=== PATIENT | male | born 1955 | race Caucasian/White ===

== ENCOUNTER 2016-10-08 19:36 | Observation (INO) ==
[2016-10-08 20:09] LABS: Basophils % 0.3 %; Eosinophils # 0.1 K/mcL (0.0-0.6); Eosinophils % 2.1 %; Hematocrit 39.5 % (37.5-50.1); Hemoglobin 12.7 g/dL (12.9-16.9); Immature Granulocytes % 0.3 % (0-4); Immature Platelets 7.8 % (1.1-6.1); Lymphocytes % 29.8 %; Mean Corpuscular HGB Conc 32.2 g/dL (31.6-35.5); Mean Corpuscular Hemoglobin 26.4 pg (28.0-33.3); Mean Corpuscular Volume 82.1 fL (83.0-100.0); Mean Platelet Volume 10.9 fL (9.4-12.4); Monocytes # 0.4 K/mcL (0.0-1.3); Monocytes % 6.2 %; Platelet Count 165 K/mcL (140-400); Red Blood Count 4.81 M/mcL (4.19-5.50); Red Cell Distribution Width 15.5 % (11.5-14.5); Segmented Neutrophils % 61.3 %
[2016-10-08 20:14] LABS: INR 1.1; Prothrombin Time 11.6 Seconds (9.4-12.1)
[2016-10-08 20:17] LABS: Activated Partial Thrombo Time 32.5 Seconds (26.0-36.0)
--- NOTE | 2016-10-08 20:19 | Emergency Department Note ---
Disposition Clinical Impression: Facial paresis, Dysphagia Disposition: Admitted As Inpatient Condition: Good Referrals: Unassigned,Provider [Non-Partnered Physician] - Forms: ED Satisfaction Letter General Adult HPI - General Chief complaint: ED Neuro Symptoms/Deficit Stated complaint: Neuro S/Sx Time Seen by Provider: 10/08/16 19:44 Source: patient, family Limitations: no limitations Nursing Notes Reviewed: Yes Vital Signs Reviewed: Yes - History of Present Illness Pain Scale: 8 - Related Data Home Medications Medication Instructions Recorded Confirmed Allopurinol [Zyloprim 100 MG] 400 mg PO DAILY 10/08/16 10/08/16 Aspirin Enteric Coated [Aspirin EC] 81 mg PO DAILY 10/08/16 10/08/16 Atorvastatin Calcium [Lipitor] 80 mg PO HS 10/08/16 10/08/16 Baclofen 20 mg PO DAILY 10/08/16 10/08/16 Duloxetine HCl [Cymbalta] 60 mg PO BID 10/08/16 10/08/16 Esomeprazole Magnesium [Nexium] 40 mg PO DAILY 10/08/16 10/08/16 Insulin Regular, Human [Humulin R 90 - 140 unit SQ TIDWM 10/08/16 10/08/16 U-500 Kwikpen] Levothyroxine [Synthroid] 75 mcg PO 0630 10/08/16 10/08/16 Lisinopril [Zestril] 5 mg PO DAILY 10/08/16 10/08/16 Magnesium Oxide [Mag-Ox] 400 mg PO BID 10/08/16 10/08/16 Metformin HCl [Glucophage] 1,000 mg PO BIDWM 10/08/16 10/08/16 Metoprolol [Lopressor] 50 mg PO BID 10/08/16 10/08/16 Morphine Sulfate/Naltrexone 1 each PO BID 10/08/16 10/08/16 [Embeda ER 60-2.4 mg Capsule] [place]-3/Dha/Epa/Fish Oil [Fish Oil 1,000 mg PO TID 10/08/16 10/08/16 1,000 mg Softgel] Oxycodone HCl 15 mg PO QID PRN 10/08/16 10/08/16 Pregabalin [Lyrica] 150 mg PO TID 10/08/16 10/08/16 Ranitidine HCl [Zantac] 150 mg PO BID 10/08/16 10/08/16 Torsemide [Demadex] 20 mg PO BID 10/08/16 10/08/16 Allergies Allergy/AdvReac Type Severity Reaction Status Date / Time celecoxib [From Celebrex] Allergy Hives Verified 10/08/16 19:43 clarithromycin [From Biaxin] Allergy Hives Verified 10/08/16 22:08 methocarbamol [From Robaxin] Allergy Hives Verified 10/08/16 19:43 Penicillins Allergy Hives Verified 10/08/16 19:43 Past Medical History - Past Medical History Medical history: Reports: diabetes, hyperlipidemia, hypertension Psychiatric history: Reports: depression - Social History Smoking Status: Never smoker Smokeless Tobacco Status: No Alcohol use: Reports: none Drug use: Reports: none Physical Exam - General Limitations: no limitations General appearance: alert, in no apparent distress Course Vital Signs Temperature 98.0 F 10/08/16 19:40 Pulse Rate 73 10/08/16 19:40 Respiratory Rate 18 10/08/16 19:40 Blood Pressure 184/75 10/08/16 19:40 O2 Sat by Pulse Oximetry 94 L 10/08/16 19:40 Temperature 98.0 F 10/08/16 19:40 Pulse Rate 72 10/08/16 20:28 Respiratory Rate 16 10/08/16 20:28 Blood Pressure 150/71 10/08/16 20:28 O2 Sat by Pulse Oximetry 94 L 10/08/16 19:40 Oxygen Delivery Oxygen Delivery Room Air Medical Decision Making - MDM Narrative Medical decision making narrative: I examined this patient and my medical decision-making was reviewed with the HAND I CUTTER/PA/Advanced Practice Nurse/Resident Physician. I agree with the documented findings, disposition and treatment plan as described except to the extent set forth below. Patient seen and evaluated by Dr. dorado and myself, I agree with his evaluation and management plan, supervise care the patient's stay. 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 He is in agreement with this plan of management. Head CT 10/08/16 19:56 IMPRESSION: 1. No acute intracranial abnormality. 2. Trace left mastoid effusion with partial opacification of the left middle ear cavity. D/ / Shamar Bryant MD / Shamar Bryant MD Interpreting Provider: Shamar Bryant MD 2130 hrs. paging hospitalist for admission. 2200 hrs.: Hospitalist's accepted patient for admission. Patient agrees with the plan. - Lab Data Result diagrams: 10/08/16 20:03 10/08/16 20:03 Lab Results 10/08/16 10/08/16 10/08/16 Range/Units 20:03 20:03 20:03 WBC 6.6 (4.3-11.1) K/mcL RBC 4.81 (4.19-5.50) M/mcL Hgb 12.7 L (12.9-16.9) g/dL Hct 39.5 (37.5-50.1) % MCV 82.1 L (83.0-100.0) fL MCH 26.4 L (28.0-33.3) pg MCHC 32.2 (31.6-35.5) g/dL RDW 15.5 H (11.5-14.5) % Plt Count 165 (140-400) K/mcL MPV 10.9 (9.4-12.4) fL Immature Gran % 0.3 (0-4) % Seg Neutrophils % 61.3 % Lymphocytes % 29.8 % Monocytes % 6.2 % Eosinophils % 2.1 % Basophils % 0.3 % Neutrophils # 4.0 (1.6-8.9) K/mcL Lymphocytes # 2.0 (0.6-4.6) K/mcL Monocytes # 0.4 (0.0-1.3) K/mcL Eosinophils # 0.1 (0.0-0.6) K/mcL Basophils # 0.0 (0.0-0.2) K/mcL Immature Plt Fraction 7.8 H (1.1-6.1) % PT 11.6 (9.4-12.1) Seconds INR 1.1 APTT 32.5 (26.0-36.0) Seconds Sodium 136 (136-145) mEq/L Potassium 4.5 (3.5-4.5) mEq/L Chloride 100 (98-109) mEq/L Carbon Dioxide 27 (19-29) mEq/L BUN 14 (8-26) mg/dL Creatinine 1.00 (0.72-1.25) mg/dL Est GFR ( Amer) > 60 (> 60) Est GFR (Non-Af Amer) > 60 (> 60) BUN/Creatinine Ratio 14 (6-26) Glucose 307 H (70-99) mg/dL POC Glucose (58-89) Calculated Osmolality 294 (280-300) Calcium 8.8 (8.6-10.8) mg/dL Troponin I (0-0.03) ng/mL 10/08/16 10/08/16 Range/Units 20:03 20:03 WBC (4.3-11.1) K/mcL RBC (4.19-5.50) M/mcL Hgb (12.9-16.9) g/dL Hct (37.5-50.1) % MCV (83.0-100.0) fL MCH (28.0-33.3) pg MCHC (31.6-35.5) g/dL RDW (11.5-14.5) % Plt Count (140-400) K/mcL MPV (9.4-12.4) fL Immature Gran % (0-4) % Seg Neutrophils % % Lymphocytes % % Monocytes % % Eosinophils % % Basophils % % Neutrophils # (1.6-8.9) K/mcL Lymphocytes # (0.6-4.6) K/mcL Monocytes # (0.0-1.3) K/mcL Eosinophils # (0.0-0.6) K/mcL Basophils # (0.0-0.2) K/mcL Immature Plt Fraction (1.1-6.1) % PT (9.4-12.1) Seconds INR APTT (26.0-36.0) Seconds Sodium (136-145) mEq/L Potassium (3.5-4.5) mEq/L Chloride (98-109) mEq/L Carbon Dioxide (19-29) mEq/L BUN (8-26) mg/dL Creatinine (0.72-1.25) mg/dL Est GFR ( Amer) (> 60) Est GFR (Non-Af Amer) (> 60) BUN/Creatinine Ratio (6-26) Glucose (70-99) mg/dL POC Glucose 274 H (58-89) Calculated Osmolality (280-300) Calcium (8.6-10.8) mg/dL Troponin I 0.01 (0-0.03) ng/mL
[2016-10-08 20:20] LABS: BUN/Creatinine Ratio 14 (6-26); Blood Urea Nitrogen 14 mg/dL (8-26); Calcium 8.8 mg/dL (8.6-10.8); Carbon Dioxide 27 mEq/L (19-29); Chloride 100 mEq/L (98-109); Glucose 307 mg/dL (70-99); Osmolality,Calculated 294 (280-300); Potassium 4.5 mEq/L (3.5-4.5); Sodium 136 mEq/L (136-145); eGFR For African Americans > 60 (> 60); eGFR For Non-African Americans > 60 (> 60)
--- NOTE | 2016-10-08 20:26 | Emergency Department Note ---
Disposition Clinical Impression: Facial paresis Dysphagia Qualifiers: Dysphagia type: unspecified Qualified Code(s): R13.10 - Dysphagia, unspecified Disposition: Admitted As Inpatient Condition: Good Referrals: Unassigned,Provider [Non-Partnered Physician] - Forms: ED Satisfaction Letter General Adult HPI - General Chief complaint: ED Neuro Symptoms/Deficit Stated complaint: Neuro S/Sx Time Seen by Provider: 10/08/16 19:44 Source: patient, family Mode of arrival: ambulatory Limitations: no limitations Nursing Notes Reviewed: Yes Vital Signs Reviewed: Yes - History of Present Illness HPI Narrative: 61-year-old male who reports yesterday afternoon he noticed that he was having right-sided facial droop, difficulty eating, difficulty speaking. 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 He has significant medical history of diabetes, hypertension, hyperlipidemia, obesity. He does not have a known history of stroke. He denies having any numbness or tingling of his hands or his feet. He denies difficulty walking. He does state that he is having difficulty speaking and has slurring of his speech. Radiation: non-radiation Pain Severity: moderate Pain Scale: 8 (chronic low back pain) Improves with: nothing Worsens with: nothing Associated symptoms: Reports: denies other symptoms - Related Data Allergies Allergy/AdvReac Type Severity Reaction Status Date / Time celecoxib [From Celebrex] Allergy Hives Verified 10/08/16 19:43 clarithromycin [From Biaxin] Allergy Hives Verified 10/08/16 22:08 methocarbamol [From Robaxin] Allergy Hives Verified 10/08/16 19:43 Penicillins Allergy Hives Verified 10/08/16 19:43 All systems ED: reviewed and negative except as stated. Constitutional: Denies: fever Eyes: Denies: vision change ENT ED: Denies: throat pain Cardiovascular: Denies: chest pain Respiratory: Denies: cough Gastrointestinal: Denies: abdominal pain Integumentary: Denies: rash Past Medical History - Past Medical History Medical history: Reports: diabetes, hyperlipidemia, hypertension Psychiatric history: Reports: depression - Social History Smoking Status: Never smoker Smokeless Tobacco Status: No Alcohol use: Reports: none Drug use: Reports: none Physical Exam - General Limitations: no limitations General appearance: alert, in no apparent distress - Head Head exam: atraumatic - Eye Eye exam: Present: other (Left-sided eye droop) - ENT ENT exam: other (Right-sided facial droop with sparing of the forehead.) - Neck Neck exam: Present: normal inspection - Chest Chest inspection: Present: normal inspection - Respiratory Respiratory exam: Present: normal lung sounds bilaterally. Absent: respiratory distress - Cardiovascular Cardiovascular exam: Present: regular rate, normal rhythm - Abdominal Exam Abdominal exam: Present: soft, Non-Tender - Extremities Exam Extremities exam: Present: normal inspection - Neurological Exam Neurological exam: Present: alert, oriented X3, other (facial droop of the mouth on the right. No eyebrow droop on the right. Left eyebrow droop) - Psychiatric Psychiatric exam: Present: normal affect, normal mood - Skin Skin exam: Present: warm, dry Course Course Narrative: He does have right-sided mouth facial droop but does not have eyebrow droop on the right. He does have some eyebrow droop on the left. He has no other neurologic deficit. CT scan and basic lab work and been ordered. This does not appear to be a classic Avila's palsy and ask such he will need admitted for CVA rule out. - Reevaluation(s) Reevaluation #1: Accepted by hospitalist Dr Ortiz. Vital Signs Temperature 98.0 F 10/08/16 19:40 Pulse Rate 73 10/08/16 19:40 Respiratory Rate 18 10/08/16 19:40 Blood Pressure 184/75 10/08/16 19:40 O2 Sat by Pulse Oximetry 94 L 10/08/16 19:40 Temperature 98.0 F 10/08/16 19:40 Pulse Rate 72 10/08/16 20:28 Respiratory Rate 16 10/08/16 20:28 Blood Pressure 150/71 10/08/16 20:28 O2 Sat by Pulse Oximetry 94 L 10/08/16 19:40 Oxygen Delivery Oxygen Delivery Room Air Medical Decision Making - Medical Records Medical records reviewed: Yes I reviewed the patient's medical records. - Lab Data Lab results reviewed: Yes I reviewed the patient's lab results. Result diagrams: 10/08/16 20:03 10/08/16 20:03 Lab Results 10/08/16 10/08/16 10/08/16 Range/Units 20:03 20:03 20:03 WBC 6.6 (4.3-11.1) K/mcL RBC 4.81 (4.19-5.50) M/mcL Hgb 12.7 L (12.9-16.9) g/dL Hct 39.5 (37.5-50.1) % MCV 82.1 L (83.0-100.0) fL MCH 26.4 L (28.0-33.3) pg MCHC 32.2 (31.6-35.5) g/dL RDW 15.5 H (11.5-14.5) % Plt Count 165 (140-400) K/mcL MPV 10.9 (9.4-12.4) fL Immature Gran % 0.3 (0-4) % Seg Neutrophils % 61.3 % Lymphocytes % 29.8 % Monocytes % 6.2 % Eosinophils % 2.1 % Basophils % 0.3 % Neutrophils # 4.0 (1.6-8.9) K/mcL Lymphocytes # 2.0 (0.6-4.6) K/mcL Monocytes # 0.4 (0.0-1.3) K/mcL Eosinophils # 0.1 (0.0-0.6) K/mcL Basophils # 0.0 (0.0-0.2) K/mcL Immature Plt Fraction 7.8 H (1.1-6.1) % PT 11.6 (9.4-12.1) Seconds INR 1.1 APTT 32.5 (26.0-36.0) Seconds Sodium 136 (136-145) mEq/L Potassium 4.5 (3.5-4.5) mEq/L Chloride 100 (98-109) mEq/L Carbon Dioxide 27 (19-29) mEq/L BUN 14 (8-26) mg/dL Creatinine 1.00 (0.72-1.25) mg/dL Est GFR ( Amer) > 60 (> 60) Est GFR (Non-Af Amer) > 60 (> 60) BUN/Creatinine Ratio 14 (6-26) Glucose 307 H (70-99) mg/dL POC Glucose (58-89) Calculated Osmolality 294 (280-300) Calcium 8.8 (8.6-10.8) mg/dL Troponin I (0-0.03) ng/mL 10/08/16 10/08/16 Range/Units 20:03 20:03 WBC (4.3-11.1) K/mcL RBC (4.19-5.50) M/mcL Hgb (12.9-16.9) g/dL Hct (37.5-50.1) % MCV (83.0-100.0) fL MCH (28.0-33.3) pg MCHC (31.6-35.5) g/dL RDW (11.5-14.5) % Plt Count (140-400) K/mcL MPV (9.4-12.4) fL Immature Gran % (0-4) % Seg Neutrophils % % Lymphocytes % % Monocytes % % Eosinophils % % Basophils % % Neutrophils # (1.6-8.9) K/mcL Lymphocytes # (0.6-4.6) K/mcL Monocytes # (0.0-1.3) K/mcL Eosinophils # (0.0-0.6) K/mcL Basophils # (0.0-0.2) K/mcL Immature Plt Fraction (1.1-6.1) % PT (9.4-12.1) Seconds INR APTT (26.0-36.0) Seconds Sodium (136-145) mEq/L Potassium (3.5-4.5) mEq/L Chloride (98-109) mEq/L Carbon Dioxide (19-29) mEq/L BUN (8-26) mg/dL Creatinine (0.72-1.25) mg/dL Est GFR ( Amer) (> 60) Est GFR (Non-Af Amer) (> 60) BUN/Creatinine Ratio (6-26) Glucose (70-99) mg/dL POC Glucose 274 H (58-89) Calculated Osmolality (280-300) Calcium (8.6-10.8) mg/dL Troponin I 0.01 (0-0.03) ng/mL - Radiology Data Radiology results reviewed: Yes I reviewed the patient's radiology results. - EKG Data EKG #1 EKG attestation: Yes I reviewed and interpreted this EKG. EKG shows normal: sinus rhythm Rate: normal Rhythm: NSR When compared to previous EKG there are: no significant changes Interpretation: nonspecific ST-T wave changes
--- NOTE | 2016-10-08 22:53 | Emergency Department Note ---
Disposition Clinical Impression: Facial paresis Dysphagia Qualifiers: Dysphagia type: unspecified Qualified Code(s): R13.10 - Dysphagia, unspecified Disposition: Admitted As Inpatient Condition: Good General Adult HPI - General Chief complaint: ED Neuro Symptoms/Deficit Stated complaint: Neuro S/Sx Time Seen by Provider: 10/08/16 19:44 Source: patient, family Mode of arrival: ambulatory Limitations: no limitations Nursing Notes Reviewed: Yes Vital Signs Reviewed: Yes - History of Present Illness Pain Scale: 0 Improves with: nothing Worsens with: nothing Associated symptoms: Reports: denies other symptoms - Related Data Home Medications Medication Instructions Recorded Confirmed Allopurinol [Zyloprim 100 MG] 400 mg PO DAILY 10/08/16 10/08/16 Aspirin Enteric Coated [Aspirin EC] 81 mg PO DAILY 10/08/16 10/08/16 Atorvastatin Calcium [Lipitor] 80 mg PO HS 10/08/16 10/08/16 Baclofen 20 mg PO DAILY 10/08/16 10/08/16 Duloxetine HCl [Cymbalta] 60 mg PO BID 10/08/16 10/08/16 Esomeprazole Magnesium [Nexium] 40 mg PO DAILY 10/08/16 10/08/16 Insulin Regular, Human [Humulin R 90 - 140 unit SQ TIDWM 10/08/16 10/08/16 U-500 Kwikpen] Levothyroxine [Synthroid] 75 mcg PO 0630 10/08/16 10/08/16 Lisinopril [Zestril] 5 mg PO DAILY 10/08/16 10/08/16 Magnesium Oxide [Mag-Ox] 400 mg PO BID 10/08/16 10/08/16 Metformin HCl [Glucophage] 1,000 mg PO BIDWM 10/08/16 10/08/16 Metoprolol [Lopressor] 50 mg PO BID 10/08/16 10/08/16 Morphine Sulfate/Naltrexone 1 each PO BID 10/08/16 10/08/16 [Embeda ER 60-2.4 mg Capsule] [place]-3/Dha/Epa/Fish Oil [Fish Oil 1,000 mg PO TID 10/08/16 10/08/16 1,000 mg Softgel] Oxycodone HCl 15 mg PO QID PRN 10/08/16 10/08/16 Pregabalin [Lyrica] 150 mg PO TID 10/08/16 10/08/16 Ranitidine HCl [Zantac] 150 mg PO BID 10/08/16 10/08/16 Torsemide [Demadex] 20 mg PO BID 10/08/16 10/08/16 Allergies Allergy/AdvReac Type Severity Reaction Status Date / Time celecoxib [From Celebrex] Allergy Hives Verified 10/08/16 19:43 clarithromycin [From Biaxin] Allergy Hives Verified 10/08/16 22:08 methocarbamol [From Robaxin] Allergy Hives Verified 10/08/16 19:43 Penicillins Allergy Hives Verified 10/08/16 19:43 Constitutional: Denies: fever Eyes: Denies: vision change ENT ED: Denies: throat pain Cardiovascular: Denies: chest pain Respiratory: Denies: cough Gastrointestinal: Denies: abdominal pain Integumentary: Denies: rash Past Medical History - Past Medical History Medical history: Reports: diabetes, hyperlipidemia, hypertension Psychiatric history: Reports: depression - Social History Smoking Status: Never smoker Smokeless Tobacco Status: No Alcohol use: Reports: none Drug use: Reports: none Physical Exam - General Limitations: no limitations General appearance: alert, in no apparent distress Course Vital Signs Temperature 98.0 F 10/08/16 19:40 Pulse Rate 73 10/08/16 19:40 Respiratory Rate 18 10/08/16 19:40 Blood Pressure 184/75 10/08/16 19:40 O2 Sat by Pulse Oximetry 94 L 10/08/16 19:40 Temperature 98.0 F 10/08/16 19:40 Pulse Rate 72 10/08/16 20:28 Respiratory Rate 18 10/08/16 22:47 Blood Pressure 174/74 10/08/16 22:47 O2 Sat by Pulse Oximetry 94 L 10/08/16 19:40 Oxygen Delivery Oxygen Delivery Room Air Medical Decision Making - MDM Narrative Medical decision making narrative: 2230 hrs.: Patient's NIH scale is 1 from the time he came into the department until admission. His been unchanged. - Lab Data Result diagrams: 10/08/16 20:03 10/08/16 20:03 Lab Results 10/08/16 10/08/16 10/08/16 Range/Units 20:03 20:03 20:03 WBC 6.6 (4.3-11.1) K/mcL RBC 4.81 (4.19-5.50) M/mcL Hgb 12.7 L (12.9-16.9) g/dL Hct 39.5 (37.5-50.1) % MCV 82.1 L (83.0-100.0) fL MCH 26.4 L (28.0-33.3) pg MCHC 32.2 (31.6-35.5) g/dL RDW 15.5 H (11.5-14.5) % Plt Count 165 (140-400) K/mcL MPV 10.9 (9.4-12.4) fL Immature Gran % 0.3 (0-4) % Seg Neutrophils % 61.3 % Lymphocytes % 29.8 % Monocytes % 6.2 % Eosinophils % 2.1 % Basophils % 0.3 % Neutrophils # 4.0 (1.6-8.9) K/mcL Lymphocytes # 2.0 (0.6-4.6) K/mcL Monocytes # 0.4 (0.0-1.3) K/mcL Eosinophils # 0.1 (0.0-0.6) K/mcL Basophils # 0.0 (0.0-0.2) K/mcL Immature Plt Fraction 7.8 H (1.1-6.1) % PT 11.6 (9.4-12.1) Seconds INR 1.1 APTT 32.5 (26.0-36.0) Seconds Sodium 136 (136-145) mEq/L Potassium 4.5 (3.5-4.5) mEq/L Chloride 100 (98-109) mEq/L Carbon Dioxide 27 (19-29) mEq/L BUN 14 (8-26) mg/dL Creatinine 1.00 (0.72-1.25) mg/dL Est GFR ( Amer) > 60 (> 60) Est GFR (Non-Af Amer) > 60 (> 60) BUN/Creatinine Ratio 14 (6-26) Glucose 307 H (70-99) mg/dL POC Glucose (58-89) Calculated Osmolality 294 (280-300) Calcium 8.8 (8.6-10.8) mg/dL Troponin I (0-0.03) ng/mL 10/08/16 10/08/16 Range/Units 20:03 20:03 WBC (4.3-11.1) K/mcL RBC (4.19-5.50) M/mcL Hgb (12.9-16.9) g/dL Hct (37.5-50.1) % MCV (83.0-100.0) fL MCH (28.0-33.3) pg MCHC (31.6-35.5) g/dL RDW (11.5-14.5) % Plt Count (140-400) K/mcL MPV (9.4-12.4) fL Immature Gran % (0-4) % Seg Neutrophils % % Lymphocytes % % Monocytes % % Eosinophils % % Basophils % % Neutrophils # (1.6-8.9) K/mcL Lymphocytes # (0.6-4.6) K/mcL Monocytes # (0.0-1.3) K/mcL Eosinophils # (0.0-0.6) K/mcL Basophils # (0.0-0.2) K/mcL Immature Plt Fraction (1.1-6.1) % PT (9.4-12.1) Seconds INR APTT (26.0-36.0) Seconds Sodium (136-145) mEq/L Potassium (3.5-4.5) mEq/L Chloride (98-109) mEq/L Carbon Dioxide (19-29) mEq/L BUN (8-26) mg/dL Creatinine (0.72-1.25) mg/dL Est GFR ( Amer) (> 60) Est GFR (Non-Af Amer) (> 60) BUN/Creatinine Ratio (6-26) Glucose (70-99) mg/dL POC Glucose 274 H (58-89) Calculated Osmolality (280-300) Calcium (8.6-10.8) mg/dL Troponin I 0.01 (0-0.03) ng/mL
[2016-10-08] MEDS ORDERED: Naloxone 0.4 MG/ML INJ IVP PRN (22:58)
[2016-10-08] MEDS ORDERED: Aspirin 325 MG TABLET PO ONE (22:59)
[2016-10-08] MEDS ORDERED: *HR* OxyCODONE Immed Rel 15 MG TABLET PO PRN (23:01)
[2016-10-08] MEDS ORDERED: Magnesium Oxide 400 MG TABLET PO SCH (23:15)
--- NOTE | 2016-10-08 23:35 | Internal Med History&Physical ---
<Precious Saha M - Last Filed: 10/09/16 00:47> Date of Encounter: 10/08/16 Time of Encounter: 23:33 Assessment and Plan (1) Dysphagia Current visit: Yes Status: Acute Patient with right facial droop and difficulty swallowing. Patient failed nursing bedside swallow. CT Head negative for acute intracranial abnormality. NPO MRI head and brain ordered aspirin 600mg per rectum Speech eval ordered Consult to neurology Consult to PT/OT Qualifiers: Dysphagia type: unspecified Qualified Code(s): R13.10 - Dysphagia, unspecified (2) Facial paresis Current visit: Yes Status: Acute Patient with right facial droop and difficulty swallowing. Has difficulty closing and keeping left eye closed as well. CT Head negative for acute intracranial abnormality. NPO MRI head and brain ordered aspirin 600mg per rectum Speech eval ordered Consult to neurology Consult to PT/OT (3) Type 2 diabetes mellitus Current visit: Yes Status: Chronic Check blood sugar Q 6 hours Patient takes U-500 insulin sliding scale at home. Discussed with pharmacist. Ordered weight based basal dose plus high dose sliding scale q6 hours. Patient is NPO, so basal dose is actually half the weight based dose. Once patient is cleared to take PO, basal dose will be 54u Levemir HS. 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 Patient is NPO as he failed nursing bedside swallow study. Give PRN Morphine and dilaudid for pain. Narcan PRN for respiratory depression. Restart home meds once cleared to take PO Qualifiers: Back pain location: low back pain Back pain laterality: unspecified Sciatica presence: without sciatica Qualified Code(s): M54.5 - Low back pain; G89.29 - Other chronic pain (6) DVT prophylaxis Current visit: Yes Status: Acute ambulate with assistance anti-embolic stockings Lovenox 40mg SQ daily Internal Medicine - H&P: HPI Chief complaint: right sided facial droop Admitted From: Emergency Dept Plans for Post Hospital Care: Home History of present illness: Mr. Milligan is a 61 year old male attention, hyperlipidemia, CHF, type 2 diabetes , morbid obesity, sleep apnea, chronic back pain, who presents to the emergency department today with complaints of right-sided facial droop that started yesterday. Patient noted droop on right-side of his mouth and reports he has trouble closing his left eye. He reports he has had trouble with swallowing, and difficulty speaking, however his family reports his speech sounds normal to them. He reports abnormal, tingly sensation on right side of face. Patient denies any lightheadedness, dizziness, loss of consciousness. Patient denies any chest pain, palpitations, shortness of breath. Patient denies any recent fever, chills, sweats. Patient denies any change in his gait, weakness in his limbs, numbness or tingling outside of his usual neuropathy which is long- standing in his bilateral lower extremities. Evaluation in the emergency department included a CT of the head which is negative for any acute intracranial abnormality. EKG showed normal sinus rhythm with no significant changes from previous. He was hyperglycemic with glucose of 307. Troponin was normal at 0.01. On exam, patient is morbidly obese, alert and oriented, in no acute distress. Right side of mouth is noted to be downturned. Tongue is midline, when patient puffs out cheeks air leaks out on the right side of his mouth. When asked to smile, neither side of his mouth turns up. When asked to close his eyes patient is able to close both eyes but his left eye comes open again, patient reports he is unable to keep his left eye closed. Extraocular movements intact. Patient is able to ambulate and family reports his gait is normal for him with his chronic back pain. No pronator drift, equal strength bilaterally in upper and lower extremities, normal reflexes. Past Med Surg Social Fam HX - Past Medical History Medical history: CHF, diabetes, hyperlipidemia, hypertension, thyroid disease, other (BLE neuropathy, chronic back pain, SD) Psychiatric history: depression - Past Surgical History Surgical History: appendectomy, herniorrhaphy - Social History Smoking Status: Former smoker (130+ pack year history (4PPD x 34 yrs)) Smokeless Tobacco Status: No Alcohol use: none Drug use: none Internal Medicine - H&P: Meds Allopurinol [Zyloprim 100 MG] 400 mg PO DAILY 10/08/16 [History] Aspirin Enteric Coated [Aspirin EC] 81 mg PO DAILY 10/08/16 [History] Atorvastatin Calcium [Lipitor] 80 mg PO HS 10/08/16 [History] Baclofen 20 mg PO DAILY 10/08/16 [History] Duloxetine HCl [Cymbalta] 60 mg PO BID 10/08/16 [History] Esomeprazole Magnesium [Nexium] 40 mg PO DAILY 10/08/16 [History] Insulin Regular, Human [Humulin R U-500 Kwikpen] 90 - 140 unit SQ TIDWM [History] Levothyroxine [Synthroid] 75 mcg PO 0630 10/08/16 [History] Lisinopril [Zestril] 5 mg PO DAILY 10/08/16 [History] Magnesium Oxide [Mag-Ox] 400 mg PO BID 10/08/16 [History] Metformin HCl [Glucophage] 1,000 mg PO BIDWM 10/08/16 [History] Metoprolol [Lopressor] 50 mg PO BID 10/08/16 [History] Morphine Sulfate/Naltrexone [Embeda ER 60-2.4 mg Capsule] 1 each PO BID [History] [place]-3/Dha/Epa/Fish Oil [Fish Oil 1,000 mg Softgel] 1,000 mg PO TID 10/08/16 [ History] Oxycodone HCl 15 mg PO QID PRN 10/08/16 [History] Pregabalin [Lyrica] 150 mg PO TID 10/08/16 [History] Ranitidine HCl [Zantac] 150 mg PO BID 10/08/16 [History] Torsemide [Demadex] 20 mg PO BID 10/08/16 [History] Allergies celecoxib [From Celebrex] Allergy (Verified 10/08/16 19:43) Hives clarithromycin [From Biaxin] Allergy (Verified 10/08/16 22:08) Hives methocarbamol [From Robaxin] Allergy (Verified 10/08/16 19:43) Hives Penicillins Allergy (Verified 10/08/16 19:43) Hives All Systems PM: A 10-system review of systems was performed and is negative for pertinent findings except as documented above in the HPI. - Constitutional Constitutional: no chills, no fever(s), no night sweats - EENT Eyes: no change in vision, no discharge, no pain, no photophobia Additional comments: difficulty closing left eye Ears: no ear discharge, no ear pain, no tinnitus Nose, mouth and throat: dysphagia, no nasal discharge, no neck pain, no sore throat - Cardiovascular Cardiovascular ROS IM: no chest pain, no diaphoresis, no dyspnea, no lightheadedness, no palpitations, no syncope - Respiratory Respiratory: no cough, no dyspnea, no wheezing, no excessive phlegm production - Gastrointestinal Gastrointestinal: no abdominal pain, no diarrhea, no hematemesis, no hematochezia, no melena, no nausea, no vomiting - Musculoskeletal Musculoskeletal ROS IM: back pain (chronic), no numbness, no tingling - Integumentary Integumentary IM: no rash, no unusual bruising - Neurological Neurological ROS: tingling (right side of face), no confusion, no convulsions, no focal weakness, no numbness, no tremor(s) - Hematologic/Lymphatic Hematologic/Lymphatic: no easy bruising - Constitutional Vitals: Temp Pulse Resp BP Pulse Ox 98.0 F 72 18 174/74 94 L 10/08/16 19:40 10/08/16 20:28 10/08/16 22:47 10/08/16 22:47 10/08/16 19:40 General appearance: Present: A&O X 3, morbidly obese, no acute distress - Head Head exam: Present: atraumatic, normocephalic - Eye Eye exam: Present: PERRL, conjuntiva pink, sclera anicteric Pupils: Present: PERRL Additional comments: left eye does not stay closed when instructed to close eyes - Neck Neck exam general surgery: Present: supple, trachea midline. Absent: lymphadenopathy - Respiratory Respiratory exam: Present: CTAB. Absent: accessory muscle use, rales, rhonchi, wheezes - Cardiovascular Cardiovascular exam: Present: RRR, +S1, +S2. Absent: diastolic murmur, gallop, rubs, systolic murmur - GI/Abdominal GI/Abdominal exam: Present: normal bowel sounds, soft, no peritoneal signs. Absent: distended, tenderness - Extremities Exam Extremities exam: Present: warm, radial pulses palpable and symetrical. Absent : calf tenderness, cyanotic, pedal edema - Neurological Exam Neurological exam: Present: normal gait, oriented X3, reflexes normal, no focal deficits, strengths equal and symetr throughout, facial droop. Absent: pronater drift, speech deficit - Expanded Neurological Exam Cranial Nerves: EOM's intact PM: Normal, tongue deviation PM: Normal Cerebellar function: finger to nose: Normal Neuro motor strength exam: LUE: 5, RUE: 5, LLE: 5, RLE: 5 DTR: brachioradialis (L): 2+, brachioradialis (R): 2+, patellar (L): 2+, patellar (R): 2+ - Skin Skin exam: Present: dry, intact Internal Med - H&P Results - Labs CBC & Chem 7: 10/08/16 20:03 10/08/16 20:03 Labs: All Lab Results (24 Hours) 10/08/16 10/08/16 10/08/16 Range/Units 20:03 20:03 20:03 WBC 6.6 (4.3-11.1) K/mcL RBC 4.81 (4.19-5.50) M/mcL Hgb 12.7 L (12.9-16.9) g/dL Hct 39.5 (37.5-50.1) % MCV 82.1 L (83.0-100.0) fL MCH 26.4 L (28.0-33.3) pg MCHC 32.2 (31.6-35.5) g/dL RDW 15.5 H (11.5-14.5) % Plt Count 165 (140-400) K/mcL MPV 10.9 (9.4-12.4) fL Immature Gran % 0.3 (0-4) % Seg Neutrophils % 61.3 % Lymphocytes % 29.8 % Monocytes % 6.2 % Eosinophils % 2.1 % Basophils % 0.3 % Neutrophils # 4.0 (1.6-8.9) K/mcL Lymphocytes # 2.0 (0.6-4.6) K/mcL Monocytes # 0.4 (0.0-1.3) K/mcL Eosinophils # 0.1 (0.0-0.6) K/mcL Basophils # 0.0 (0.0-0.2) K/mcL Immature Plt Fraction 7.8 H (1.1-6.1) % PT 11.6 (9.4-12.1) Seconds INR 1.1 APTT 32.5 (26.0-36.0) Seconds Sodium 136 (136-145) mEq/L Potassium 4.5 (3.5-4.5) mEq/L Chloride 100 (98-109) mEq/L Carbon Dioxide 27 (19-29) mEq/L BUN 14 (8-26) mg/dL Creatinine 1.00 (0.72-1.25) mg/dL Est GFR ( Amer) > 60 (> 60) Est GFR (Non-Af Amer) > 60 (> 60) BUN/Creatinine Ratio 14 (6-26) Glucose 307 H (70-99) mg/dL POC Glucose (58-89) Est Mean Plasma Glucose mg/dl Hemoglobin A1c ( - 5.6) % Calculated Osmolality 294 (280-300) Calcium 8.8 (8.6-10.8) mg/dL Troponin I (0-0.03) ng/mL 10/08/16 10/08/16 10/08/16 Range/Units 20:03 20:03 20:03 WBC (4.3-11.1) K/mcL RBC (4.19-5.50) M/mcL Hgb (12.9-16.9) g/dL Hct (37.5-50.1) % MCV (83.0-100.0) fL MCH (28.0-33.3) pg MCHC (31.6-35.5) g/dL RDW (11.5-14.5) % Plt Count (140-400) K/mcL MPV (9.4-12.4) fL Immature Gran % (0-4) % Seg Neutrophils % % Lymphocytes % % Monocytes % % Eosinophils % % Basophils % % Neutrophils # (1.6-8.9) K/mcL Lymphocytes # (0.6-4.6) K/mcL Monocytes # (0.0-1.3) K/mcL Eosinophils # (0.0-0.6) K/mcL Basophils # (0.0-0.2) K/mcL Immature Plt Fraction (1.1-6.1) % PT (9.4-12.1) Seconds INR APTT (26.0-36.0) Seconds Sodium (136-145) mEq/L Potassium (3.5-4.5) mEq/L Chloride (98-109) mEq/L Carbon Dioxide (19-29) mEq/L BUN (8-26) mg/dL Creatinine (0.72-1.25) mg/dL Est GFR ( Amer) (> 60) Est GFR (Non-Af Amer) (> 60) BUN/Creatinine Ratio (6-26) Glucose (70-99) mg/dL POC Glucose 274 H (58-89) Est Mean Plasma Glucose 192 mg/dl Hemoglobin A1c 8.3 H ( - 5.6) % Calculated Osmolality (280-300) Calcium (8.6-10.8) mg/dL Troponin I 0.01 (0-0.03) ng/mL - Diagnostic Studies CT scan - head Additional comments: Head CT 10/08/16 19:56 IMPRESSION: 1. No acute intracranial abnormality. 2. Trace left mastoid effusion with partial opacification of the left middle ear cavity. D/ / Shamar Bryant MD / Shamar Bryant MD Interpreting Provider: Shamar Bryant MD <Yessica Ortiz R - Last Filed: 10/09/16 08:22> Internal Medicine - H&P: HPI History of present illness: Mr. Milligan is a 61 year old male Past Med Surg Social Fam HX - Family History Father Cause of : heart attack Hx Family Cardiac Disorders: Yes All Systems PM: A 10-system review of systems was performed and is negative for pertinent findings except as documented above in the HPI. - Constitutional Vitals: Temp Pulse Resp BP Pulse Ox 98.2 F 99 16 170/77 92 L 10/09/16 07:30 10/09/16 07:30 10/09/16 07:30 10/09/16 07:30 10/09/16 07:30 Internal Med - H&P Results - Labs CBC & Chem 7: 10/09/16 04:18 10/09/16 04:18 Labs: Short CBC 10/09/16 Range/Units 04:18 WBC 5.9 (4.3-11.1) K/mcL Hgb 12.1 L (12.9-16.9) g/dL Hct 37.9 (37.5-50.1) % Plt Count 153 (140-400) K/mcL Neutrophils # 3.6 (1.6-8.9) K/mcL BMP 10/09/16 04:18 Sodium 137 Potassium 4.2 Chloride 100 Carbon Dioxide 26 BUN 14 Creatinine 0.87 Glucose 279 H Calcium 8.7 - Attending Attestation I evaluated the patient and my medical decision-making was reviewed with the [employer] SIDING MECHANIC/ Advanced Practice Nurse. I agree with the documented findings, disposition and treatment plan as described except to the extent set forth below. 61 year old male with h/o HTN, hyperlipidemia, CHF, type 2 diabetes, morbid obesity, sleep apnea, chronic back pain - presented to the emergency department with right-sided facial droop that started the day before presentation. He also reports that he had trouble with swallowing, and difficulty speaking, however his family reports his speech sounds normal to them. Denies weakness of upper or lower extremities. O/E: Right facial weakness. Able to close the eyes well on the right side. CT head showed no acute intracranial abnormality. A/P: Suspected CVA: Aspirin, MRI of the brain, carotid Doppler, echocardiogram, speech therapy evaluation
[2016-10-08] MEDS ORDERED: *HR* Dextrose 50 % in Water (Syg) 50 ML SYRINGE IVP PRN (23:39)
[2016-10-08] MEDS ORDERED: Insulin LISPRO 300 UNITS/3 ML VIAL SQ SCH (23:39)
[2016-10-08] MEDS ORDERED: Dextrose Gel 15 GM PO PRN ×2 (23:39)
[2016-10-08] MEDS ORDERED: D5% in Water 1,000 ML IV PRN (23:39)
[2016-10-08] MEDS ORDERED: Insulin DETEMIR 100 UNIT/ML X5UNITS SQ SCH (23:45)
[2016-10-09] MEDS ORDERED: Insulin DETEMIR 100 UNIT/ML X5UNITS SQ SCH (00:10)
[2016-10-09] MEDS ORDERED: *HR* Morphine 2 MG/ML SYRINGE IVP PRN (00:14)
[2016-10-09] MEDS ORDERED: Ketorolac 30 MG/ML VIAL IVP PRN (00:14)
[2016-10-09] MEDS ORDERED: *HR* Metoprolol 5 MG/5 ML VIAL IVP PRN ×2 (00:16→00:18)
[2016-10-09 00:18] LABS: Hemoglobin A1C 8.3 %
[2016-10-09] MEDS: *HR* HYDROmorphone (PF) 1 MG/ML SYRINGE IVP PRN ×2 (00:43→11:18)
[2016-10-09 05:20] LABS: Basophils % 0.2 %; Eosinophils # 0.1 K/mcL (0.0-0.6); Hematocrit 37.9 % (37.5-50.1); Hemoglobin 12.1 g/dL (12.9-16.9); Immature Granulocytes % 0.3 % (0-4); Lymphocytes # 1.7 K/mcL (0.6-4.6); Lymphocytes % 29.4 %; Mean Corpuscular HGB Conc 31.9 g/dL (31.6-35.5); Mean Corpuscular Hemoglobin 26.1 pg (28.0-33.3); Mean Corpuscular Volume 81.7 fL (83.0-100.0); Mean Platelet Volume 11.9 fL (9.4-12.4); Monocytes # 0.4 K/mcL (0.0-1.3); Monocytes % 7.3 %; Neutrophils # 3.6 K/mcL (1.6-8.9); Platelet Count 153 K/mcL (140-400); Red Blood Count 4.64 M/mcL (4.19-5.50); Red Cell Distribution Width 15.5 % (11.5-14.5); Segmented Neutrophils % 60.8 %
[2016-10-09 05:40] LABS: BUN/Creatinine Ratio 16 (6-26); Blood Urea Nitrogen 14 mg/dL (8-26); Calcium 8.7 mg/dL (8.6-10.8); Carbon Dioxide 26 mEq/L (19-29); Chloride 100 mEq/L (98-109); Chol/HDL Ratio 3.5 (0-4.9); Cholesterol 87 mg/dL (< 200); Glucose 279 mg/dL (70-99); HDL Cholesterol 25 mg/dL (40-59); LDL Cholesterol,Calculated 22 mg/dL (0-99); Osmolality,Calculated 295 (280-300); Potassium 4.2 mEq/L (3.5-4.5); Sodium 137 mEq/L (136-145); Triglycerides 199 mg/dL (< 150); eGFR For African Americans > 60 (> 60); eGFR For Non-African Americans > 60 (> 60)
[2016-10-09] MEDS: Insulin LISPRO 300 UNITS/3 ML VIAL SQ SCH ×2 (05:49→11:56)
[2016-10-09] MEDS: Famotidine 20 MG TABLET PO SCH ×2 (05:50→15:25)
[2016-10-09] MEDS ORDERED: *HR* Enoxaparin 40 MG/0.4 ML SYRINGE SQ SCH (07:00)
[2016-10-09] MEDS ORDERED: Insulin LISPRO 300 UNITS/3 ML VIAL SQ SCH ×3 (07:30→21:00)
[2016-10-09] MEDS ORDERED: Pregabalin 75 MG CAPSULE PO SCH (09:00)
[2016-10-09] MEDS ORDERED: Torsemide 20 MG TABLET PO SCH (09:00)
[2016-10-09] MEDS ORDERED: Aspirin Enteric Coated 81 MG Tablet PO SCH (09:00)
[2016-10-09] MEDS ORDERED: Baclofen 10 MG TABLET PO SCH (09:00)
--- NOTE | 2016-10-09 13:29 | Internal Med Progress Note ---
Date of Encounter: 10/09/16 Time of Encounter: 13:12 - Assessment and plan (1) Facial paralysis/[place] palsy Current Visit: Yes Status: Suspected Assessment and plan: 61 y/o male presents with unilateral right facial paresis. Says he has had smiliar symptoms 5 years ago and was diagnosed with [place] palsy by his Family Physcian and was told it was due to a chickenpox virus. [facility] shows no record of this. CT head was negative for acute pathology ON exam paralysis includes right forehead, cheek, lips. This points to a more central etiology. Patient had difficulty with swallowing and was evaluated with Speech. They recommended regular diet. Patient tolerated his diet. Patient refused MRI due to being claustrophobic. He will undergo CT head again. PT/OT ordered Neurology consult ordered Lyme disease antibody, Zoster pcr. (2) Dysphagia Current Visit: Yes Status: Resolved Assessment and plan: Plan as above. Continue diabetic diet. Qualifiers: Dysphagia type: unspecified Qualified Code(s): R13.10 - Dysphagia, unspecified (3) Chronic back pain Current Visit: Yes Status: Acute Assessment and plan: Will restart home meds and d/c IV narcotics. Qualifiers: Back pain location: low back pain Back pain laterality: unspecified Sciatica presence: without sciatica Qualified Code(s): M54.5 - Low back pain; G89.29 - Other chronic pain (4) Hypertension Current Visit: Yes Status: Acute Assessment and plan: controlled. restart home meds Qualifiers: Hypertension type: essential hypertension Qualified Code(s): I10 - Essential (primary) hypertension (5) Type 2 diabetes mellitus Current Visit: Yes Status: Chronic Assessment and plan: uncontrolled type 2 diabetes. Continue basal insulin and sliding scale. 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 - Subjective Interval history: Patient has no complaints. States he has had this before 5-6 years back and was diagnosed with [place] palsy by his family physician. He does not know what the cause was. - Constitutional Vitals: Temp Pulse Resp BP Pulse Ox 97.9 F 90 17 130/72 92 L 10/09/16 10:17 10/09/16 10:17 10/09/16 10:17 10/09/16 10:10/09/16 10:17 General appearance: Present: A&O X 3, morbidly obese, no acute distress - Respiratory Respiratory exam: Present: CTAB. Absent: accessory muscle use, rales, rhonchi, wheezes - Cardiovascular Cardiovascular exam: Present: RRR, +S1, +S2. Absent: diastolic murmur, gallop, rubs, systolic murmur - GI/Abdominal GI/Abdominal exam: Present: normal bowel sounds, soft, no peritoneal signs. Absent: distended, tenderness - Extremities Exam Extremities exam: Present: warm, radial pulses palpable and symetrical. Absent : calf tenderness, cyanotic, pedal edema - Neurological Exam Neurological exam: Present: CN II-XII intact, motor sensory deficit, oriented X3 , reflexes normal, no focal deficits, strengths equal and symetr throughout, facial droop (hemifacial paralysis ). Absent: pronater drift, speech deficit Internal Medicine: Result - Labs CBC & Chem 7: 10/09/16 04:18 10/09/16 04:18 Labs: Short CBC 10/09/16 Range/Units 04:18 WBC 5.9 (4.3-11.1) K/mcL Hgb 12.1 L (12.9-16.9) g/dL Hct 37.9 (37.5-50.1) % Plt Count 153 (140-400) K/mcL Neutrophils # 3.6 (1.6-8.9) K/mcL BMP 10/09/16 04:18 Sodium 137 Potassium 4.2 Chloride 100 Carbon Dioxide 26 BUN 14 Creatinine 0.87 Glucose 279 H Calcium 8.7 - ABG Interpretation ABG results: PT/INR, D-dimer PT 11.6 Seconds (9.4-12.1) 10/08/16 20:03 Consult Discharge Plan - Plan Referrals: Kennedy garcia MD [Primary Care Provider] -
[2016-10-09 15:06] VITALS: BP 132/82
--- NOTE | 2016-10-09 17:15 | Discharge Summary ---
Date of Encounter: 10/09/16 Time of Encounter: 17:11 - Discharge Diagnosis (1) Facial paralysis/[place] palsy Priority: Primary Status: Suspected (2) Dysphagia Priority: Secondary Status: Resolved Qualifiers: Dysphagia type: unspecified Qualified Code(s): R13.10 - Dysphagia, unspecified (3) Chronic back pain Priority: Secondary Status: Acute Qualifiers: Back pain location: low back pain Back pain laterality: unspecified Sciatica presence: without sciatica Qualified Code(s): M54.5 - Low back pain; G89.29 - Other chronic pain (4) Hypertension Priority: Secondary Status: Acute Qualifiers: Hypertension type: essential hypertension Qualified Code(s): I10 - Essential (primary) hypertension (5) Type 2 diabetes mellitus Priority: Secondary Status: Chronic Qualifiers: Diabetes mellitus complication status: with neurologic complications Diabetes mellitus complication detail: with polyneuropathy Diabetes mellitus intermediate frame tender insulin use: with penitentiary use Qualified Code(s): E11.42 - Type 2 diabetes mellitus with diabetic polyneuropathy; Z79.4 - half-way (current) use of insulin (6) DVT prophylaxis Priority: Secondary Status: Acute - Discharge Medications Prescriptions: Acyclovir [Zovirax] 400 mg PO DAILY #10 tablet PredniSONE 60 mg PO DAILY 12 Days Home Medications: Allopurinol [Zyloprim 100 MG] 400 mg PO DAILY 10/08/16 [History] Aspirin Enteric Coated [Aspirin EC] 81 mg PO DAILY 10/08/16 [History] Atorvastatin Calcium [Lipitor] 80 mg PO HS 10/08/16 [History] Baclofen 20 mg PO DAILY 10/08/16 [History] Duloxetine HCl [Cymbalta] 60 mg PO BID 10/08/16 [History] Esomeprazole Magnesium [Nexium] 40 mg PO DAILY 10/08/16 [History] Insulin Regular, Human [Humulin R U-500 Kwikpen] 90 - 140 unit SQ TIDWM [History] Levothyroxine [Synthroid] 75 mcg PO 0630 10/08/16 [History] Lisinopril [Zestril] 5 mg PO DAILY 10/08/16 [History] Magnesium Oxide [Mag-Ox] 400 mg PO BID 10/08/16 [History] Metformin HCl [Glucophage] 1,000 mg PO BIDWM 10/08/16 [History] Metoprolol [Lopressor] 50 mg PO BID 10/08/16 [History] Morphine Sulfate/Naltrexone [Embeda ER 60-2.4 mg Capsule] 1 each PO BID [History] Norman-3/Dha/Epa/Fish Oil [Fish Oil 1,000 mg Softgel] 1,000 mg PO TID 10/08/16 [ History] Oxycodone HCl 15 mg PO QID PRN 10/08/16 [History] Pregabalin [Lyrica] 150 mg PO TID 10/08/16 [History] Ranitidine HCl [Zantac] 150 mg PO BID 10/08/16 [History] Torsemide [Demadex] 20 mg PO BID 10/08/16 [History] Acyclovir [Zovirax] 400 mg PO DAILY #10 tablet 10/09/16 [Rx] PredniSONE 60 mg PO DAILY 12 Days 10/09/16 [Rx] Allergies/Adverse Reactions: Allergies celecoxib [From Celebrex] Allergy (Verified 10/08/16 19:43) Hives clarithromycin [From Biaxin] Allergy (Verified 10/08/16 22:08) Hives methocarbamol [From Robaxin] Allergy (Verified 10/08/16 19:43) Hives Penicillins Allergy (Verified 10/08/16 19:43) Hives Procedures/tests Complete & Pending: Procedures Performed prior 72 hours Category Date Time Status CT head/brain wo con [CT] Routine Cat Scan 10/09/16 19:56 Ordered EV carotid duplex imaging BI Routine Y 10/09/16 08:18 Ordered EV echocardiogram Routine Y 10/09/16 08:18 Ordered Date of admission: 10/08/16 22:28 Primary care physician: Kennedy Lobo MD Consults: 10/08/16 23:26 Consult to Neurology [CONS] Routine Consulting Provider: [facility] Reason for Consult: right sided facial droop started yesterday. CT negative for acute abnormality. MRI ordered Call Completed: No 10/08/16 23:29 Consult to Speech Therapy [CONS] Routine Comment: Evaluate, develop and implement POC Reason for Consult: Patient with right sided facial droop, difficulty swallowing and reports difficulty speaking Call Completed: No 10/08/16 23:30 Consult to Occupational Therapy [CONS] Routine Comment: Evaluate, develop and implement POC Consult to Physical Therapy [CONS] Routine Comment: Evaluate, develop and implement POC Discharging clinician: Tom Devries Anticipated date of discharge: 10/09/16 - Patient Status Disposition: Home, Self-Care Condition: Good Functional capacity at discharge: independent ambulation Overall status at discharge: patient is progressing back to baseline - Discharge Instructions Follow Up With: Kennedy Lobo MD [Primary Care Provider] - Geoff Weller MD [Non-Partnered Physician] - (For [place] palsy follow up. ) Additional Instructions: IF patient has sudden onset of slurred speech, numbness/weakness on one side of body he should return to ER for immediate evaluation. - Diet and Activity Activity: increase activity as tolerated Diet: diabetic diet Hospital course: Mr. Milligan is a 61 year old male presented with complaints of right sided facil droop that started one day before admission. Neurological exam was non focal and non lateralizing except for unilateral right facial paralysis. He was worked up initially for CVA. CT head was negative. He was started on aspirin. Initially he had difficulty swallowing so all medications had to be given IV or with held. Speech therapy was consulted and cleared patient for regular diet with thin liquids consistency. Patient tolerated his lunch today. Morning after admission, Patient said he has had this before five years ago and was diagnosed with bells palsy 2nd to herpes zoster. Furthermore, he states his bells palsy resolved in three days without treatment. His history and neurological exam point towards recurrence of bells palsy rather than CVA. We have repeated CT head and if normal will d/c patient. He continues to have features of right sided bells palsy. He will be discharged on prednisone and acyclovir. Patient should continue his home medication. He will follow up with PCP and neurology outpatient. - Time Spent with Patient Total time spent providing and/or coordinating discharge services: - Constitutional Vitals: Temp Pulse Resp BP Pulse Ox 97.5 F L 92 16 132/82 96 10/09/16 15:02 10/09/16 15:02 10/09/16 15:02 10/09/16 15:02 10/09/16 15:02 General appearance: Present: A&O X 3, morbidly obese, no acute distress - Head Head exam: Present: atraumatic, normocephalic - Eye Eye exam: Present: PERRL, conjuntiva pink, sclera anicteric Pupils: Present: PERRL - Neck Neck exam general surgery: Present: supple, trachea midline. Absent: lymphadenopathy - Respiratory Respiratory exam: Present: CTAB. Absent: accessory muscle use, rales, rhonchi, wheezes - Cardiovascular Cardiovascular exam: Present: RRR, +S1, +S2. Absent: diastolic murmur, gallop, rubs, systolic murmur - GI/Abdominal GI/Abdominal exam: Present: normal bowel sounds, soft, no peritoneal signs. Absent: distended, tenderness - Extremities Exam Extremities exam: Present: warm, radial pulses palpable and symetrical. Absent : calf tenderness, cyanotic, pedal edema - Neurological Exam Neurological exam: Present: CN II-XII intact, oriented X3, no focal deficits, facial droop (right unilateral facial paralysis). Absent: pronater drift, speech deficit - Skin Skin exam: Present: dry, intact
[2016-10-10] MEDS ORDERED: Insulin LISPRO 300 UNITS/3 ML VIAL SQ SCH (07:30)
--- NOTE | 2016-10-11 14:16 | Electrocardiograph Report ---
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
== END 2016-10-09 18:05 | disposition home or self-care (01) ==
LOC: 3BNU 19:36 → EMEROO 19:36 → 3BNU 23:23
PROVIDERS: ADMIT Nurse Practitioner Family; ATTEND Nurse Practitioner Family